=== PATIENT | female | born 1975 | race Caucasian/White ===

== ENCOUNTER 2021-06-20 09:16 | Outpatient (REF) | payer OTHER, SELFPAY ==
--- NOTE | ~2021-06-20 | US_ITS ---
EXAMINATION: US RETROPERITONEAL LIMITED (RENAL ONLY) CLINICAL INFORMATION: Calculus of kidney. COMPARISON: Renals only ultrasound dated 08/27/2019 and 05/05/2019. KUBs dated 05/13/2019 and 11/07/2016. CT abdomen and pelvis without contrast dated 05/29/2014. TECHNIQUE: Real-time imaging of the kidneys. FINDINGS: RIGHT KIDNEY: 14.7 x 5.8 x 7.0 cm (SAG x AP x TRV). The kidney is normal in size, contour, and echogenicity. Renal cortical thickness is normal. There is a mid pole 3 x 3 x 4 mm echogenic focus consistent with a nonobstructing stone. No focal parenchymal lesions or hydronephrosis. LEFT KIDNEY: 9.2 x 3.4 x 5.0 cm (SAG x AP x TRV). The left kidney is significantly smaller than the right and demonstrates cortical atrophy. Similar findings have been present on prior exams . There is a lower pole 4 x 3 x 4 mm echogenic focus along with a 3 x 3 x 3 mm echogenic focus in the mid pole, both consistent with nonobstructing calculi. No focal parenchymal lesions or hydronephrosis. US/US renal BI IMPRESSION: 1. Bilateral nonobstructing renal calculi. 2. The left kidney is small and slightly atrophic.
== END 2021-06-20 09:17 | disposition home or self-care (01) ==
LOC: HO.HMGCX 09:16
PROVIDERS: PCP Physician Assistant Medical; Visit Provider Urology
DX: N20.0 Calculus of kidney (principal)
CPT/HCPCS: 76775

== ENCOUNTER → 2021-07-13 08:41 | Outpatient (BNVA) | payer OTHER, SELFPAY | PROVIDERS: PCP Physician Assistant Medical ==

== ENCOUNTER 2022-09-21 12:09 | Outpatient (REF) | payer OTHER, SELFPAY ==
[2022-09-21 14:38] LABS: Influenza A PCR NEGATIVE (Negative); Influenza B PCR NEGATIVE (Negative); Resp Syncy Virus RNA Qual PCR NEGATIVE (Negative); SARS COV2 PCR INHOUSE NEGATIVE (Negative)
== END 2022-09-21 12:10 | disposition home or self-care (01) ==
LOC: HO.LAB 12:09
PROVIDERS: Visit Provider Physician Assistant Medical
DX: Z20.822 Contact with and (suspected) exposure to COVID-19 (principal); R09.89 Other specified symptoms and signs involving the circulatory and respiratory systems
CPT/HCPCS: 0241U

== ENCOUNTER 2022-10-09 14:44 | Outpatient (REF) | payer OTHER, SELFPAY | END 2022-10-09 14:45 | disposition home or self-care (01) | LOC: HO.HMGCX 14:44 | DX: Z13.89 Encounter for screening for other disorder (principal) ==

== ENCOUNTER 2022-10-16 15:05 | Outpatient (REF) | payer OTHER, SELFPAY ==
--- NOTE | ~2022-10-16 | US_ITS ---
EXAMINATION: US RETROPERITONEAL LIMITED (RENAL ONLY) CLINICAL INFORMATION: Calculus of kidney. COMPARISON: Renal ultrasound 06/20/2021 and 08/27/2019. X-ray abdomen KUB 05/13/2019 and 11/07/2016. CT abdomen and pelvis 05/29/2014. TECHNIQUE: Real-time imaging of the kidneys. Technically difficult study secondary to body habitus. FINDINGS: RIGHT KIDNEY: 13.3 x 5.1 x 7.2 cm (SAG x AP x TRV). The kidney is normal in size and contour. Renal cortical thickness is normal. No calculi or focal parenchymal lesions. No hydronephrosis. LEFT KIDNEY: 8.4 x 3.1 x 4.8 cm (SAG x AP x TRV). The kidney is normal in size, contour, and echogenicity. Renal cortical thickness is normal. No focal parenchymal lesions or hydronephrosis. At the lower pole, 5 mm and 3 mm nonobstructing calculi are seen. US/US renal BI IMPRESSION: 5 mm and 3 mm nonobstructing left renal calculi are seen. No further calculus is seen, and there is no bilateral hydronephrosis.
== END 2022-10-16 15:06 | disposition home or self-care (01) ==
LOC: HO.HMGCX 15:05
PROVIDERS: PCP Physician Assistant Medical; Visit Provider Urology
DX: N20.0 Calculus of kidney (principal)
CPT/HCPCS: 76775

== ENCOUNTER → 2022-10-25 14:05 | Outpatient (BNVA) | payer OTHER, SELFPAY | PROVIDERS: PCP Physician Assistant Medical; Visit Provider Nurse Practitioner Family | DX: N20.0 Calculus of kidney (principal); N39.41 Urge incontinence | CPT/HCPCS: 99212 ==